=== PATIENT | female | born 1985 | race Caucasian/White ===

== ENCOUNTER 2016-11-07 17:10 | Emergency (ER) | payer OTHER ==
[~2016-11-07] VITALS: Wt 63.5 kg
[~2016-11-07 17:10] MED LIST: ANAPROX DS550 MG PO; ATARAX,VISTARIL10 MG PO; ATIVAN1 MG PO; BACTRIM DS 8001 TA1 PO; CATAFLAM50 MG PO; CIPRO500 MG PO; CLEOCIN HCL150 MG PO; CLINDAMYCIN HC300 MG PO; CLINDAMYCIN150 MG PO; DARVOCET N 1001 TAB PO; DICLOFENAC POT.50 MG PO; DIFLUCAN150 MG PO; EES400 MG PO; Effexor25 MG PO; FLONASE ALLERG9.9 ML NAS; HYCODAN/HYDROMET5 ML PO; KEFLEX500 MG PO; LATU20TA PO; LITHIUM CARBON150 MG PO; MEDROL DOSEPAK4 MG PO; MOTRIN800 MG PO; NAPROSYN500 MG PO; NEURONTIN300 MG PO; NICODERM C14 MG/24 H TD; NORFLEX100 MG PO; PEPCID20 MG PO; PREDNISONE10 MG PO; PROAIR HFA8.5 GM INH; PROZAC20 MG PO; PYRIDIUM200 MG PO; ROBITUSSIN AC 110 ML PO; TESSALON PERLE100 M1 PO; ULTRAM50 MG PO; VENTOLIN 02.5 MG/3 M INH; VICODIN 5/500 505 MG PO; VISTARIL25 M2 PO; XANAX0.5 MG PO; ZITHROMAX Z PA250 MG PO; ZITHROMAX250 MG PO; ZOFRAN ODT4 MG SL; Zofran4 MG PO
[2016-11-07 18:18] LABS: BASO % 0.5 % (0.0-1.0); EOS # 0.1 10*3/uL (0.0-0.4); EOS % 0.7 % (1.0-4.0); HEMATOCRIT 36.1 % (37.0-47.0); HEMOGLOBIN 12.7 g/dl (12.0-16.0); LYMPH # 2.5 10*3/uL (1.3-4.4); LYMPH % 28.1 % (27.0-41.0); MEAN CELL VOLUME 90.3 fl (81.0-99.0); MEAN CORPUSCULAR HGB 31.8 pg (27.0-31.0); MEAN CORPUSCULAR HGB CONC 35.2 g/dl (33.0-37.0); MONO # 0.6 10*3/uL (0.1-1.0); MONO % 6.2 % (3.0-9.0); NEUT # 5.7 10*3/uL (2.3-7.9); NEUT % 64.4 % (47.0-73.0); PLATELET COUNT AUTOMATED 215 10*3/uL (130-400); RED CELL DISTRI WIDTH 12.1 % (0-14.5); WHITE BLOOD COUNT 8.8 10*3/uL (4.8-10.8)
[2016-11-07 18:29] LABS: PROTHROMBIN TIME 10.8 SECONDS (9.0-12.4)
[2016-11-07 18:37] LABS: ALBUMIN 3.8 gm/dl (3.1-4.5); ALKALINE PHOSPHATASE 51 U/L (45-117); BILIRUBIN, TOTAL 0.4 mg/dl (0.2-1.0); BUN 7 mg/dl (7-24); CARBON DIOXIDE 24 mmol/L (21-32); CHLORIDE 108 mmol/L (98-107); EST GLOM FILT AFRICAN AMERICAN > 60 ml/min; GLUCOSE 74 mg/dL (65-99); POTASSIUM 3.6 mmol/L (3.5-5.1); SGOT/AST 10 IU/L (3-35); SGPT/ALT 17 U/L (12-78); SODIUM 141 mmol/L (136-145); TOTAL PROTEIN 7.7 gm/dL (6.4-8.2)
[2016-11-07 18:39] LABS: MAGNESIUM 1.7 mg/dL (1.5-2.1)
[2016-11-13] MEDS ORDERED: 'XANAX1 MG PO (20:22)
[2016-11-13] MEDS ORDERED: LATU40TA1 PO (20:22)
[2016-11-13] MEDS ORDERED: XANAX1 MG PO (21:46)
[2016-11-13] MEDS ORDERED: ZOFRAN ODT4 MG SL (21:47)
== END 2016-11-07 18:39 | disposition home or self-care (01) ==
LOC: ED 17:10
PROVIDERS: Emergency Medicine
DX: F41.9 Anxiety disorder, unspecified (principal); J45.909 Unspecified asthma, uncomplicated; F17.200 Nicotine dependence, unspecified, uncomplicated; Z88.0 Allergy status to penicillin

== ENCOUNTER 2017-03-15 19:30 | Emergency (ER) | payer OTHER ==
[~2017-03-15] VITALS: Ht 167.6 cm; Wt 63.5 kg
[~2017-03-15 19:30] MED LIST changes: +'XANAX1 MG PO; +LATU40TA1 PO; +XANAX1 MG PO
[2017-03-15] MEDS ORDERED: BACTRIM DS 8001 TA1 PO (20:10)
== END 2017-03-15 20:12 | disposition home or self-care (01) ==
LOC: ED 19:30
DX: H60.01 Abscess of right external ear (principal); F17.200 Nicotine dependence, unspecified, uncomplicated; Z88.0 Allergy status to penicillin

== ENCOUNTER 2017-06-06 22:16 | Emergency (ER) | payer OTHER ==
[~2017-06-06] VITALS: Ht 167.6 cm; Wt 63.5 kg
== END 2017-06-07 02:28 | disposition left against medical advice (07) ==
LOC: ED 22:16
DX: G47.00 Insomnia, unspecified (principal); R51 Headache; Z88.0 Allergy status to penicillin

== ENCOUNTER 2017-09-21 21:49 | Emergency (ER) | payer OTHER ==
[~2017-09-21] VITALS: Ht 167.6 cm; Wt 65.8 kg
[2017-09-21 22:14] LABS: BILIRUBIN NEGATIVE (NEGATIVE); BLOOD NEGATIVE (NEGATIVE); CLARITY SL CLOUDY (CLEAR); COLOR YELLOW (YELLOW); GLUCOSE NEGATIVE (NEGATIVE); KETONE NEGATIVE (NEGATIVE); LEUKO ESTERASE NEGATIVE (NEGATIVE); NITRITE NEGATIVE (NEGATIVE); PH 6.5 (5.0-9.0); SPECIFIC GRAVITY 1.015 (1.005-1.030); UROBILINOGEN 0.2 E.U./dl (0.2-1.0)
[2017-09-21 22:30] LABS: BACTERIA TRACE; EPITHELIAL CELLS 35-40
[2017-09-21 22:31] LABS: WBC 0-2 wbc/hpf (0-5)
[2017-09-22] MEDS ORDERED: ZANAFLEX2 M1 PO (01:05)
[2017-09-22] MEDS ORDERED: TRAMADOL HCL50 MG PO (01:05)
== END 2017-09-22 00:51 | disposition home or self-care (01) ==
LOC: ED 21:49
PROVIDERS: Emergency Medicine
DX: S29.012A Strain of muscle and tendon of back wall of thorax, initial encounter (principal); F17.200 Nicotine dependence, unspecified, uncomplicated; Z88.0 Allergy status to penicillin; X58.XXXA Exposure to other specified factors, initial encounter; Y93.89 Activity, other specified; Y92.89 Other specified places as the place of occurrence of the external cause; Y99.8 Other external cause status

== ENCOUNTER 2018-02-25 16:54 | Emergency (ER) | payer OTHER ==
[~2018-02-25] VITALS: Ht 167.6 cm; Wt 63.5 kg
[~2018-02-25 16:54] MED LIST changes: +TRAMADOL HCL50 MG PO; +ZANAFLEX2 M1 PO
[2018-02-25 17:19] LABS: BILIRUBIN 1+ (NEGATIVE); BLOOD NEGATIVE (NEGATIVE); CLARITY SL CLOUDY (CLEAR); COLOR YELLOW (YELLOW); GLUCOSE NEGATIVE (NEGATIVE); KETONE TRACE (NEGATIVE); LEUKO ESTERASE NEGATIVE (NEGATIVE); NITRITE NEGATIVE (NEGATIVE); PH 5.5 (5.0-9.0); SPECIFIC GRAVITY >= 1.030 (1.005-1.030); UROBILINOGEN 0.2 E.U./dl (0.2-1.0)
[2018-02-25 17:25] LABS: EPITHELIAL CELLS TNTC; MUCOUS 1+; RBC 0-2 rbc/hpf (0-2)
== END 2018-02-25 18:00 | disposition home or self-care (01) ==
LOC: ED 16:54
PROVIDERS: Emergency Medicine
DX: K59.00 Constipation, unspecified (principal); B36.0 Pityriasis versicolor; G89.29 Other chronic pain; M54.9 Dorsalgia, unspecified; F17.200 Nicotine dependence, unspecified, uncomplicated; Z98.51 Tubal ligation status; Z98.890 Other specified postprocedural states; Z88.0 Allergy status to penicillin

== ENCOUNTER 2018-07-18 20:36 | Emergency (ER) | payer OTHER ==
[~2018-07-18] VITALS: Ht 167.6 cm; Wt 65.8 kg
[2018-07-18] MEDS ORDERED: ZITHROMAX250 MG PO (21:10)
== END 2018-07-18 21:30 | disposition home or self-care (01) ==
LOC: ED 20:36
DX: J06.9 Acute upper respiratory infection, unspecified (principal); Z88.0 Allergy status to penicillin

== ENCOUNTER 2018-09-27 16:13 | Emergency (ER) | payer OTHER ==
[~2018-09-27] VITALS: Wt 63.5 kg
[2018-09-27] MEDS ORDERED: ZITHROMAX250 MG PO (18:24)
[2018-09-27] MEDS ORDERED: TESSALON PERLE100 M1 PO (18:24)
== END 2018-09-27 18:35 | disposition home or self-care (01) ==
LOC: ED 16:13
DX: J40 Bronchitis, not specified as acute or chronic (principal); F17.200 Nicotine dependence, unspecified, uncomplicated; Z88.0 Allergy status to penicillin

== ENCOUNTER 2019-07-21 15:59 | Emergency (ER) | payer SELFPAY ==
[~2019-07-21] VITALS: Wt 63.0 kg
[~2019-07-21 15:59] MED LIST changes: +DOXYCYCLINE100 M3 PO
[2019-07-21] MEDS ORDERED: HYDROCODONE-AC1 EAC1 PO (16:08)
[2019-07-21 17:05] LABS: HEMATOCRIT 35.3 % (37.0-47.0); HEMOGLOBIN 11.7 g/dl (12.0-16.0); MEAN CELL VOLUME 92.4 fl (81.0-99.0); MEAN CORPUSCULAR HGB 30.6 pg (27.0-31.0); MEAN CORPUSCULAR HGB CONC 33.1 g/dl (33.0-37.0); MEAN PLATELET VOLUME 9.1 fl (9.6-12.3); PLATELET COUNT AUTOMATED 246 10*3/uL (130-400); RED BLOOD COUNT 3.82 10*6/uL (4.10-5.10); RED CELL DISTRI WIDTH 13.1 % (0-14.5); WHITE BLOOD COUNT 13.7 10*3/uL (4.8-10.8)
[2019-07-21 17:19] LABS: ALBUMIN 2.9 gm/dl (3.1-4.5); ALKALINE PHOSPHATASE 72 U/L (45-117); BUN 9 mg/dl (7-24); CHLORIDE 106 mmol/L (98-107); CREATININE 0.68 mg/dL (0.55-1.02); LIPASE 49 U/L (73-393); POTASSIUM 3.5 mmol/L (3.5-5.1); SGOT/AST 6 IU/L (3-35); SGPT/ALT 9 U/L (12-78); SODIUM 137 mmol/L (136-145); TOTAL PROTEIN 7.4 gm/dL (6.4-8.2)
[2019-07-21 17:31] LABS: PLATELET SUFFICIENCY NORMAL (NORMAL); TOTAL CELLS COUNTED 100 #CELLS
[2019-07-21 17:32] LABS: BURR CELLS FEW
[2019-07-21 19:02] LABS: BILIRUBIN 1+ (NEGATIVE); BLOOD 1+ (NEGATIVE); CLARITY CLOUDY (CLEAR); COLOR YELLOW (YELLOW); GLUCOSE NEGATIVE (NEGATIVE); KETONE 3+ (NEGATIVE); LEUKO ESTERASE 2+ (NEGATIVE); NITRITE POSITIVE (NEGATIVE)
[2019-07-21 19:11] LABS: WBC TNTC wbc/hpf (0-5)
[2019-07-21] MEDS ORDERED: CIPRO500 MG PO (20:48)
[2019-07-22] MEDS ORDERED: CIPRO500 MG PO (08:29)
== END 2019-07-21 20:51 | disposition home or self-care (01) ==
LOC: ED 15:59
PROVIDERS: Physician Assistant
DX: N12 Tubulo-interstitial nephritis, not specified as acute or chronic (principal); R11.2 Nausea with vomiting, unspecified; F17.200 Nicotine dependence, unspecified, uncomplicated; Z98.51 Tubal ligation status; Z98.890 Other specified postprocedural states; Z79.899 Other long term (current) drug therapy; Z88.0 Allergy status to penicillin

== ENCOUNTER 2019-07-23 07:50 | Inpatient (IN) | payer SELFPAY ==
[~2019-07-23] VITALS: Ht 167.6 cm; Wt 64.7 kg
[~2019-07-23 07:50] MED LIST changes: +HYDROCODONE-AC1 EAC1 PO
[2019-07-23 07:53] VITALS: BP 130/85
--- NOTE | 2019-07-23 08:17 | NUR ---
ASKED IF SHE COULD PROVIDE URINE SPECIMIN, PT TELLS ME THAT SHE NEES A BEDPAN. BACKL TO ROOM TO PROVIDE BEDPAN AND PT TELLS ME THAT SHE DOESN'T WANT ME TO BE HER NURSE. LAB IS AT BEDSIDE AND PT IS REFUSING LABS AT THIS TIME.
[2019-07-23 08:58] LABS: ACT PARTIAL THROMBO TIME 29.3 SECONDS (20.0-32.1); BASO % 0.3 % (0.0-1.0); EOS # 0.1 10*3/uL (0.0-0.4); EOS % 0.5 % (1.0-4.0); HEMATOCRIT 37.5 % (37.0-47.0); HEMOGLOBIN 12.8 g/dl (12.0-16.0); LYMPH # 2.9 10*3/uL (1.3-4.4); LYMPH % 26.8 % (27.0-41.0); MEAN CELL VOLUME 89.5 fl (81.0-99.0); MEAN CORPUSCULAR HGB 30.5 pg (27.0-31.0); MEAN CORPUSCULAR HGB CONC 34.1 g/dl (33.0-37.0); MEAN PLATELET VOLUME 9.5 fl (9.6-12.3); MONO # 0.9 10*3/uL (0.1-1.0); MONO % 8.7 % (3.0-9.0); NEUT # 6.9 10*3/uL (2.3-7.9); NEUT % 63.2 % (47.0-73.0); RED BLOOD COUNT 4.19 10*6/uL (4.10-5.10); WHITE BLOOD COUNT 10.8 10*3/uL (4.8-10.8)
[2019-07-23 08:59] LABS: PLATELET COUNT AUTOMATED 360 10*3/uL (130-400)
[2019-07-23 09:07] LABS: ALKALINE PHOSPHATASE 70 U/L (45-117); B-hCG (QUALITATIVE) NEGATIVE (NEGATIVE); BUN 8 mg/dl (7-24); CHLORIDE 102 mmol/L (98-107); CREATININE 0.65 mg/dL (0.55-1.02); SGOT/AST 13 IU/L (3-35); SGPT/ALT 14 U/L (12-78); SODIUM 135 mmol/L (136-145); TOTAL PROTEIN 7.6 gm/dL (6.4-8.2)
[2019-07-23 09:08] LABS: TROPONIN I < 0.015 ng/ml (<0.045)
[2019-07-23 09:17] VITALS: BP 132/81
--- NOTE | 2019-07-23 09:17 | NUR ---
Time: 1916 A 34 year old FEMALE admitted to 4E under services of GREG OTERO DO. Pt. arrived via bed from ER. Chief complaint: ABD PPAIN, PYELONEPHRITIS. KEVIN ALTMAN
[2019-07-23 09:56] LABS: BILIRUBIN NEGATIVE (NEGATIVE); BLOOD NEGATIVE (NEGATIVE); CLARITY CLOUDY (CLEAR); COLOR YELLOW (YELLOW); GLUCOSE NEGATIVE (NEGATIVE); KETONE NEGATIVE (NEGATIVE); LEUKO ESTERASE NEGATIVE (NEGATIVE); NITRITE NEGATIVE (NEGATIVE); PH >= 9.0 (5.0-9.0); SPECIFIC GRAVITY 1.015 (1.005-1.030); UROBILINOGEN 0.2 E.U./dl (0.2-1.0)
[2019-07-23 10:12] LABS: URINE AMPHETAMINES < 1000 (1000ng/ml); URINE BARBITURATES < 200 (200ng/ml); URINE BENZODIAZEPINES > 200 (200ng/ml); URINE CANNABINOIDS (THC) > 50 (50ng/ml); URINE COCAINE < 300 (300ng/ml); URINE METHADONE < 300 (300ng/ml); URINE OPIATES > 300 (300ng/ml)
--- NOTE | 2019-07-23 10:15 | NUR ---
NOTIFIED THAT MED REC WAS UPDATED
[2019-07-23 10:22] LABS: EPITHELIAL CELLS 20-30
[2019-07-23 10:25] LABS: URINE PHENCYCLIDINE < 25 (25ng/ml)
[2019-07-23 10:48] LABS: BACTERIA 2+
[2019-07-23 12:00] VITALS: BP 107/58
--- NOTE | 2019-07-23 12:02 | NUR ---
NOTIFIED OF PATIENTS C/O ABD PAIN, PATIENT MOANING OUT AND THRASHING ABOUT THE BED, NO ORDERS AVAILABLE FOR PNRS AND WAS NOTIFIED
--- NOTE | 2019-07-23 12:29 | NUR ---
NOTIFIED AGAIN THAT PATIENT IS IN A LOT OFPAIN, MOANING LOUDLY THRASHING ABOUT THE BED PAIN RATED 20/10
--- NOTE | 2019-07-23 12:57 | NUR ---
PRN MORPHINE GIVEN FOR C/O OF SEVERE ABD AND BACK PAIN, PRN ZOFRAN GIVEN FOR C/O OF NAUSEA WILL CONTINUE TO MONITOR
--- NOTE | 2019-07-23 13:20 | NUR ---
PT RESTING IN BED WITH EYES OPEN REPORTS SOME COMFORT FROM PRN MORPHINE
--- NOTE | 2019-07-23 13:52 | NUR ---
PT C/O OF ABD CRAMPING AND PAIN PRN NORCO GIVEN PER ORDER
--- NOTE | 2019-07-23 14:20 | NUR ---
PATIENT REPORTS SOME RELIEF FOR PAIN RATING 5/10 PATIENT ALSO FIGHITNG WITH MOTHER ON CELLPHONE STATING "MY MOTHER IS THREATENING TO KEEP MY KIDS, AND SHES CALLING CYS, SHE WONT GIVE ME MY HOUSE CARNES" PATIENT ENOCURGED TO CALM DOWN AND TO PLEASE STOP YELLING BECAUSE WE HAVE VERY SICK PATIENTS TRYING TO REST, PT AGREED TO CALM DOWN AND AGAIN SPOKE WITH HER MOTHER ON SPEAKER PHONE, MOTHER IS CONCERNED THAT HER DAUGHTER IS "BACK ON DRUGS" BUT HAS AGREED TO STOP CALLING AND FIGHTING WITH HER.
[2019-07-23 16:00] VITALS: BP 123/74
--- NOTE | 2019-07-23 16:44 | NUR ---
PT C/O ABDOMINAL PAIN RATING IT A 10/10. MEDICATED WITH PRN MORPHINE. CALL LIGHT WITHIN REACH. WILL MONITOR EFFECTIVNESS.
--- NOTE | 2019-07-23 16:55 | NUR ---
IV TO LEFT AC D/C D/T PAIN AND BURNING
--- NOTE | 2019-07-23 17:15 | NUR ---
PAIN STATES PAIN MED WAS EFFECTIVE FOR PAIN AT THIS TIME RATING PAIN A 5/10. CALL LIGHT WITHIN REACH. WILL MONITOR.
--- NOTE | 2019-07-23 19:01 | NUR ---
NOTIFIED OF PATIENTS COMPLAINT THAT NOTHIGN WE'VE GIVEN HER IS EFFECTIVE FOR PAIN ALTHOUGH PATIENT HAS REPORTED PAIN RELIEF OR A DECREASE IN PAIN ON REAASSESSMENTS.
[2019-07-23 20:00] VITALS: BP 136/87
--- NOTE | 2019-07-23 20:08 | NUR ---
PATIENT DRAMATIC. YELLING OUT. MOANING, HOLDING STOMACH. C/O ABD CRAMPING RATING A 10+. MEDICATED WITH NORCO AND ZOFRAN IV PER PRN ORDER FOR COMPLAINTS OF PAIN AND NAUSEA. CALL LIGHT WITHIN REACH. WILL MONITOR FOR EFFECTIVENESS
--- NOTE | 2019-07-23 21:16 | NUR ---
PATIENT DOZED BRIEFLY AFTER RECEIVING EARLIER MEDS. NOW REQUESTING SOMETHING TO ASSIST WITH SLEEP, RESTORIL PROVIDED PER PRN ORDER. CALL LIGHT WITHIN REACH. WILL MONITOR
--- NOTE | 2019-07-23 23:21 | NUR ---
PATIENT AWAKENED FOR MIDNIGHT VS. UPON AWAKENING, PATIENT AGAIN DRAMATIC THRASHING ABT BED. REQUESTED AND RECIEVED MORPHINE IV PER PRN ORDER. WILL MONITOR
[2019-07-24] VITALS: BP 142/87
--- NOTE | 2019-07-24 00:01 | NUR ---
PATIENT NOW REQUESTING TYLENOL TO ASSIST WITH PAIN. STATES MORPHINE "TAKES THE EDGE OFF." TYLENOL PROVIDED PER PRN ORDER
--- NOTE | 2019-07-24 01:16 | NUR ---
REQUESTED AND RECEIVED NORCO PER PRN ORDER FOR COMPLAINTS OF ABD PAIN RATING A 10. CALL LIGHT WITHIN REACH WILL MONITOR FOR EFFECTIVENESS
--- NOTE | 2019-07-24 02:00 | NUR ---
EARLIER MEDS APPEAR EFFECTIVE. SLEEPING
--- NOTE | 2019-07-24 04:20 | NUR ---
PATIENT AGAIN DRAMATIC, MOANING. MEDICATED WITH MORPHINE IV PER PRN ORDER. CALL LIGHT WITHIN REACH. WILL MONITOR
--- NOTE | 2019-07-24 04:50 | NUR ---
24 HR chart check completed.
--- NOTE | 2019-07-24 06:15 | NUR ---
AWAKENED FOR AM LABS, PATIENT MOANING AND HOLDING ABD. MEDICATED WITH NORCO PER PRN ORDER FOR COMPLAINTS OF ABD PAIN RATING A 10. CALL LIGHT WITHIN REACH. WILL MONITOR
[2019-07-24 07:14] LABS: BASO # 0.1 10*3/uL (0.0-0.1); BASO % 0.8 % (0.0-1.0); EOS # 0.1 10*3/uL (0.0-0.4); EOS % 1.7 % (1.0-4.0); HEMOGLOBIN 11.8 g/dl (12.0-16.0); LYMPH # 3.4 10*3/uL (1.3-4.4); MEAN CELL VOLUME 91.6 fl (81.0-99.0); MEAN CORPUSCULAR HGB CONC 32.8 g/dl (33.0-37.0); MONO # 0.7 10*3/uL (0.1-1.0); MONO % 8.4 % (3.0-9.0); NEUT # 4.1 10*3/uL (2.3-7.9); NEUT % 48.5 % (47.0-73.0); PLATELET COUNT AUTOMATED 361 10*3/uL (130-400); RED BLOOD COUNT 3.93 10*6/uL (4.10-5.10); WHITE BLOOD COUNT 8.5 10*3/uL (4.8-10.8)
[2019-07-24 07:49] LABS: ALBUMIN 2.8 gm/dl (3.1-4.5); BUN 8 mg/dl (7-24); CHLORIDE 108 mmol/L (98-107); CHOLESTEROL 160 mg/dL (<200); CREATININE 0.59 mg/dL (0.55-1.02); PHOSPHOROUS 3.9 mg/dL (2.5-4.9); POTASSIUM 3.4 mmol/L (3.5-5.1); SGOT/AST 8 IU/L (3-35); SGPT/ALT 11 U/L (12-78); SODIUM 140 mmol/L (136-145); TRIGLYCERIDES 197 mg/dl (<150); VLDL CHOLESTEROL 39 mg/dL (6-40)
[2019-07-24 07:57] LABS: ALKALINE PHOSPHATASE 63 U/L (45-117); FREE T4 1.26 ng/dl (0.76-1.46); HDL CHOLESTEROL 24 mg/dl (40-60); LDL CHOLESTEROL 97 mg/dL (9-159)
[2019-07-24 08:00] VITALS: BP 104/68
--- NOTE | 2019-07-24 09:10 | NUR ---
MEDICATED WITH MORPHINE PER ORDER FOR C/O R FLANK PAIN RATED AT A 10 OUT OF 10.
--- NOTE | 2019-07-24 09:59 | NUR ---
MEDICATED WITH PRN NORCO PER ORDER AND REQUEST FOR "R KIDNEY PAIN" MORPHINE EARLIER HELPED A LITTLE.
--- NOTE | 2019-07-24 10:53 | NUR ---
NOTIFIED DR. CHAVEZ OFFICE OF CONSULT.
[2019-07-24 12:00] VITALS: BP 102/70
--- NOTE | 2019-07-24 12:16 | NUR ---
BENADRYL GIVEN PER ORDER AND REQUEST.
--- NOTE | 2019-07-24 12:48 | NUR ---
case management attempted to visit with patient, patient was sleeping, case management woke patient up and she stated she did not want to talk with me at this time, case management will see at a later time
--- NOTE | 2019-07-24 13:50 | NUR ---
BENADRYL HELPED VERY LITTLE, MEDICATED WITH MOPRPHINE PER ORDER AND REQUEST. PATIENT HAS NOT STOPPED CRYING ALL MORNING STATES HER KIDNEY HURTS.
--- NOTE | 2019-07-24 15:57 | NUR ---
MEDICATED WITH NORCO FOR R KIDNEY PAIN.
[2019-07-24 16:00] VITALS: BP 130/80
--- NOTE | 2019-07-24 16:30 | NUR ---
BAYRON HELPED SOME.
--- NOTE | 2019-07-24 17:03 | NUR ---
MEDICATED WITH PRN ZOFRAN PER ORSDER AND REQUEST.
--- NOTE | 2019-07-24 18:00 | NUR ---
DIMITRI HELPED A LITTLE.
--- NOTE | 2019-07-24 18:11 | NUR ---
Medicated for abdominal pain scale 10/10.
--- NOTE | 2019-07-24 18:32 | NUR ---
PATIENT CALLED RN TO ROOM AGAIN REQUESTING BENADRYL AGAIN EDUCATED BID AND THEN PATIENT WANTS TYLENOL AND NORCO INCREASED.
--- NOTE | 2019-07-24 19:56 | NUR ---
DRAMATIC, THRASHING ABOUT IN BED. MOANING, HOLDING ABD. RESPIRATIONS EASY. LUNGS DIMINISHED, CLEAR. PULSE OX 100% RA. C/O ABD CRAMPING AND PAIN RATING A 10 - MEDICATED WITH NORCO PER PRN ORDER. CALL LIGHT WITHIN REACH. WILL MONITOR
[2019-07-24 20:00] VITALS: BP 138/82; BP 139/94
--- NOTE | 2019-07-24 21:30 | NUR ---
VISITING HOURS REVIEWED AND VISITOR ASKED TO LEAVE
--- NOTE | 2019-07-24 22:00 | NUR ---
24 HR chart check completed.
--- NOTE | 2019-07-24 22:30 | NUR ---
IV FLUIDS INITIATED PER ORDER. REQUESTED AND RECEIVED MORPHINE AND BENADRYL PER PRN ORDER FOR COMPLAINTS OF ABD PAIN RATING A 10 AND TO ASSIST WITH SLEEP. WILL MONITOR
[2019-07-25] VITALS: BP 110/64
--- NOTE | 2019-07-25 | NUR ---
SLEEPING. VSS. IV FLUIDS MAINTAINED
--- NOTE | 2019-07-25 00:47 | NUR ---
AWAKE, THRASHING IN BED. MEDICATED WITH NORCO AND RESTORIL PER PRN ORDER FOR COMPLAINTS OF PAIN RATING A 10 AND TO ASSIST WITH SLEEP. WILL MONITOR
--- NOTE | 2019-07-25 03:47 | NUR ---
AWAKE, MOANING AND ROLLING AROUND IN BED. REQUESTED AND RECEIVED MORPHINE IV PER PRN ORDER. CALL LIGHT WITHIN REACH. WILL MONITOR
--- NOTE | 2019-07-25 04:51 | NUR ---
TYLENOL PROVIDED PER PATIENT REQUEST FOR COMPLAINTS OF ABD CRAMPING/ PAIN RATING A 10. WILL MONITOR
--- NOTE | 2019-07-25 06:02 | NUR ---
PATIENT AWAKENED FOR AM LABS. IMMEDIATELY UPON AWAKENING, REQUESTED NORCO TO ASSIST WITH ABD PAIN RATING A 10. DRAMATIC.
--- NOTE | 2019-07-25 07:00 | NUR ---
DOZING INTERMITTENTLY
[2019-07-25 07:09] LABS: BUN 8 mg/dl (7-24); CHLORIDE 110 mmol/L (98-107); CREATININE 0.58 mg/dL (0.55-1.02); POTASSIUM 3.9 mmol/L (3.5-5.1); SODIUM 140 mmol/L (136-145)
--- NOTE | 2019-07-25 07:59 | NUR ---
MEDICATED WITH BENADRYL AND MORPHINE PER ORDERS. PATIENT STATES SHE IS IN SEVERE PAIN R FLANK CRYING MAONING THRASHING IN BED.
[2019-07-25 08:00] VITALS: BP 104/66
--- NOTE | 2019-07-25 08:30 | NUR ---
BENADRYL AND MORPHINE HELPED.
--- NOTE | 2019-07-25 09:00 | NUR ---
case management visits with patient, she will return home when able and denies any home needs
[2019-07-25] MEDS ORDERED: SEPTDS PO (10:14)
[2019-07-25] MEDS ORDERED: NORCO 5-325 TA1 EACH PO (10:16)
--- NOTE | 2019-07-25 10:30 | NUR ---
DR. RIGGINS HAS ROUNDED AND PATIENT IS TO BE DISCHARGED.
--- NOTE | 2019-07-25 11:20 | NUR ---
PATIENT DISCHARGED TO HOME.
== END 2019-07-25 11:20 | disposition home or self-care (01) | DRG 690 ==
LOC: ED 07:50 → EDHOLD 08:18 → 4E 08:18
PROVIDERS: Emergency Medicine; Internal Medicine; ADMIT Internal Medicine
DX: N10 Acute pyelonephritis (principal); E87.1 Hypo-osmolality and hyponatremia; E44.1 Mild protein-calorie malnutrition; E87.6 Hypokalemia; D72.810 Lymphocytopenia; F19.10 Other psychoactive substance abuse, uncomplicated; F13.10 Sedative, hypnotic or anxiolytic abuse, uncomplicated; F17.210 Nicotine dependence, cigarettes, uncomplicated; Z88.0 Allergy status to penicillin; Z83.3 Family history of diabetes mellitus; Z68.23 Body mass index [BMI] 23.0-23.9, adult

== ENCOUNTER 2019-10-11 15:04 | Emergency (ER) | payer SELFPAY ==
[~2019-10-11] VITALS: Ht 167.6 cm; Wt 63.5 kg
[~2019-10-11 15:04] MED LIST changes: +NORCO 5-325 TA1 EACH PO; +SEPTDS PO
[2019-10-11 15:46] LABS: BILIRUBIN NEGATIVE (NEGATIVE); BLOOD NEGATIVE (NEGATIVE); CLARITY SL CLOUDY (CLEAR); COLOR YELLOW (YELLOW); GLUCOSE NEGATIVE (NEGATIVE); KETONE NEGATIVE (NEGATIVE); LEUKO ESTERASE NEGATIVE (NEGATIVE); NITRITE NEGATIVE (NEGATIVE); UROBILINOGEN 0.2 E.U./dl (0.2-1.0)
[2019-10-11] MEDS ORDERED: FLAGYL500 MG PO (16:17)
[2019-10-11] MEDS ORDERED: ZOFRAN4 MG PO (16:17)
[2019-10-13 07:06] LABS: GONOCOCCUS BY NAA Negative (Negative)
== END 2019-10-11 16:50 | disposition home or self-care (01) ==
LOC: ED 15:04
PROVIDERS: Physician Assistant
DX: R10.2 Pelvic and perineal pain (principal); R11.0 Nausea; L29.2 Pruritus vulvae; F17.200 Nicotine dependence, unspecified, uncomplicated; Z88.0 Allergy status to penicillin

== ENCOUNTER 2020-09-07 00:48 | Emergency (ER) | payer OTHER ==
[~2020-09-07] VITALS: Ht 167.6 cm; Wt 64.9 kg
[~2020-09-07 00:48] MED LIST changes: +FLAGYL500 MG PO; +ZOFRAN4 MG PO
[2020-09-07 01:15] LABS: BILIRUBIN Negative (Negative); BLOOD 1+ (Negative); CLARITY Cloudy (Clear); COLOR Yellow (Yellow); GLUCOSE Negative (Negative); KETONE Negative (Negative); LEUKO ESTERASE 1+ (Negative); NITRITE Negative (Negative); SPECIFIC GRAVITY 1.025 (1.001-1.030)
[2020-09-07 01:16] LABS: BASO % 0.3 % (0.0-1.0); EOS # 0.2 10*3/uL (0.0-0.4); EOS % 1.8 % (1.0-4.0); HEMATOCRIT 35.5 % (37.0-47.0); LYMPH # 2.2 10*3/uL (1.3-4.4); LYMPH % 24.4 % (27.0-41.0); MEAN CELL VOLUME 93.4 fl (81.0-99.0); MEAN CORPUSCULAR HGB 30.8 pg (27.0-31.0); MEAN PLATELET VOLUME 8.8 fl (9.6-12.3); MONO # 0.7 10*3/uL (0.1-1.0); MONO % 8.2 % (3.0-9.0); NEUT # 5.8 10*3/uL (2.3-7.9); NEUT % 65.2 % (47.0-73.0); PLATELET COUNT AUTOMATED 272 10*3/uL (130-400); RED CELL DISTRI WIDTH 12.3 % (0-14.5); WHITE BLOOD COUNT 8.9 10*3/uL (4.8-10.8)
[2020-09-07 01:23] LABS: BACTERIA 1+; EPITHELIAL CELLS 41-50; WBC 21-30 wbc/hpf (0-5)
[2020-09-07 01:24] LABS: MUCOUS 1+
[2020-09-07 01:32] LABS: ALBUMIN 3.4 gm/dl (3.1-4.5); ALKALINE PHOSPHATASE 58 U/L (45-117); BUN 7 mg/dl (7-24); CHLORIDE 112 mmol/L (98-107); LIPASE 259 U/L (73-393); POTASSIUM 3.9 mmol/L (3.5-5.1); SGOT/AST 14 IU/L (3-35); SGPT/ALT 14 U/L (12-78); SODIUM 143 mmol/L (136-145); TOTAL PROTEIN 7.3 gm/dL (6.4-8.2)
[2020-09-07] MEDS ORDERED: KETOROLAC10 MG PO (03:29)
[2020-09-07] MEDS ORDERED: PYRIDIUM200 M1 PO (03:29)
[2020-09-07] MEDS ORDERED: CIPRO500 MG PO (03:29)
== END 2020-09-07 03:53 | disposition home or self-care (01) ==
LOC: ED 00:48
PROVIDERS: Emergency Medicine
DX: N39.0 Urinary tract infection, site not specified (principal); G89.18 Other acute postprocedural pain; F17.200 Nicotine dependence, unspecified, uncomplicated; Z88.0 Allergy status to penicillin

== ENCOUNTER 2021-06-26 15:10 | Emergency (ER) | payer OTHER ==
[~2021-06-26] VITALS: Ht 167.6 cm; Wt 65.8 kg
[~2021-06-26 15:10] MED LIST changes: +KETOROLAC10 MG PO; +PYRIDIUM200 M1 PO
[2021-06-26] MEDS ORDERED: RISPERIDONE1 MG PO (15:42)
[2021-06-26] MEDS ORDERED: SERTRALINE HYDR50 MG PO (15:42)
[2021-06-26] MEDS ORDERED: BUSPAR5 MG PO (15:43)
[2021-06-26] MEDS ORDERED: CEPHALEXIN500 M1 PO (16:15)
== END 2021-06-26 16:18 | disposition home or self-care (01) ==
LOC: ED 15:10
DX: L03.031 Cellulitis of right toe (principal); Z88.0 Allergy status to penicillin; Z79.899 Other long term (current) drug therapy

== ENCOUNTER 2021-07-02 20:36 | Emergency (ER) | payer OTHER ==
[~2021-07-02] VITALS: Ht 167.6 cm; Wt 68.0 kg
[~2021-07-02 20:36] MED LIST changes: +BUSPAR5 MG PO; +CEPHALEXIN500 M1 PO; +RISPERIDONE1 MG PO; +SERTRALINE HYDR50 MG PO
[2021-07-03] MEDS ORDERED: CEPHALEXIN500 M1 PO (00:30)
== END 2021-07-03 01:24 | disposition home or self-care (01) ==
LOC: ED 20:36
DX: L60.0 Ingrowing nail (principal); F17.200 Nicotine dependence, unspecified, uncomplicated; Z88.0 Allergy status to penicillin; Z79.899 Other long term (current) drug therapy

== ENCOUNTER 2021-07-13 13:29 | Emergency (ER) | payer OTHER ==
[~2021-07-13] VITALS: Ht 167.6 cm; Wt 65.8 kg
== END 2021-07-13 18:42 | disposition home or self-care (01) ==
LOC: ED 13:29
DX: L60.0 Ingrowing nail (principal)

== ENCOUNTER 2021-07-20 15:04 | Emergency (ER) | payer OTHER ==
[~2021-07-20] VITALS: Ht 167.6 cm; Wt 65.8 kg
[2021-07-20] MEDS ORDERED: ZOFRAN4 MG PO (18:10)
== END 2021-07-20 18:30 | disposition home or self-care (01) ==
LOC: ED 15:04
DX: U07.1 COVID-19 (principal); M79.18 Myalgia, other site; F17.200 Nicotine dependence, unspecified, uncomplicated; Z88.0 Allergy status to penicillin; Z79.2 Long term (current) use of antibiotics; Z79.899 Other long term (current) drug therapy; Z98.890 Other specified postprocedural states; Z90.711 Acquired absence of uterus with remaining cervical stump

== ENCOUNTER 2021-08-02 17:48 | Emergency (ER) | payer OTHER ==
[~2021-08-02] VITALS: Ht 167.6 cm; Wt 65.8 kg
== END 2021-08-02 20:57 | disposition home or self-care (01) ==
LOC: ED 17:48
DX: F41.0 Panic disorder [episodic paroxysmal anxiety] (principal); R20.0 Anesthesia of skin; R51.9 Headache, unspecified; R20.2 Paresthesia of skin; F17.200 Nicotine dependence, unspecified, uncomplicated; Z88.0 Allergy status to penicillin; Z79.2 Long term (current) use of antibiotics; Z79.899 Other long term (current) drug therapy; Z98.890 Other specified postprocedural states; Z90.711 Acquired absence of uterus with remaining cervical stump; Z98.51 Tubal ligation status

== ENCOUNTER 2021-10-17 10:23 | Emergency (ER) | payer OTHER ==
[~2021-10-17] VITALS: Ht 167.6 cm; Wt 69.9 kg
== END 2021-10-17 11:37 | disposition left against medical advice (07) ==
LOC: ED 10:23
DX: Z53.21 Procedure and treatment not carried out due to patient leaving prior to being seen by health care provider (principal)

== ENCOUNTER 2021-10-19 08:04 | Emergency (ER) | payer OTHER ==
[2021-10-19] MEDS ORDERED: DOXYCYCLINE HY100 M3 PO (09:53)
[2021-10-19] MEDS ORDERED: TYLENOL EXTRA500 MG PO (09:59)
== END 2021-10-19 10:01 | disposition home or self-care (01) ==
LOC: ED 08:04
DX: L60.0 Ingrowing nail (principal)

== ENCOUNTER → 2022-03-15 | Outpatient (CLI) | payer OTHER ==
[~2022-03-15] MED LIST changes: +DOXYCYCLINE HY100 M3 PO; +TYLENOL EXTRA500 MG PO
== END | disposition home or self-care (01) ==
LOC: LAB 14:51
PROVIDERS: ATTEND Family Medicine
DX: M41.84 Other forms of scoliosis, thoracic region (principal); M51.34 Other intervertebral disc degeneration, thoracic region

== ENCOUNTER 2022-05-18 09:13 | Emergency (ER) | payer OTHER ==
[~2022-05-18] VITALS: Ht 167.6 cm; Wt 77.1 kg
[2022-05-18] MEDS ORDERED: VIBRA-TAB100 MG PO (10:29)
== END 2022-05-18 10:40 | disposition home or self-care (01) ==
LOC: ED 09:13
DX: L03.031 Cellulitis of right toe (principal); Z88.0 Allergy status to penicillin; Z79.899 Other long term (current) drug therapy; Z98.890 Other specified postprocedural states; Z98.51 Tubal ligation status; Z90.710 Acquired absence of both cervix and uterus

== ENCOUNTER → 2022-11-09 | Outpatient (CLI) | payer OTHER ==
[~2022-11-09] MED LIST changes: +VIBRA-TAB100 MG PO
[2022-11-09 13:40] LABS: ALKALINE PHOSPHATASE 104 U/L (46-116); BUN 7 mg/dl (9-23); CHLORIDE 104 mmol/L (98-107); CHOLESTEROL 277 mg/dL (<200); GAMMA GLUTAMYL TRANSPEPTIDASE 123 U/L (0-73); LDL CHOLESTEROL 175 mg/dL (9-159); POTASSIUM 3.8 mmol/L (3.4-5.1); SGPT/ALT 28 U/L (10-49); TOTAL PROTEIN 7.1 gm/dL (6.0-8.0); TRIGLYCERIDES 320 mg/dl (<150)
[2022-11-10 08:08] LABS: HBSAG Negative (Negative); HEP B CORE AB, IGM Negative (Negative); HEPATITIS C ANTIBODY <0.1 (0.0-0.9)
== END | disposition home or self-care (01) ==
LOC: LAB 12:08
PROVIDERS: ATTEND Family Medicine
DX: R79.89 Other specified abnormal findings of blood chemistry (principal); R53.83 Other fatigue; E78.5 Hyperlipidemia, unspecified

== ENCOUNTER → 2023-01-21 | Outpatient (CLI) | payer OTHER ==
[2023-01-21 11:44] LABS: MEAN CELL VOLUME 90.5 fl (81.0-99.0); MEAN CORPUSCULAR HGB 32.5 pg (27.0-31.0); MEAN CORPUSCULAR HGB CONC 35.9 g/dl (33.0-37.0); MEAN PLATELET VOLUME 8.8 fl (9.6-12.3); RED BLOOD COUNT 4.53 10*6/uL (4.10-5.10); RED CELL DISTRI WIDTH 11.6 % (0-14.5); WHITE BLOOD COUNT 8.6 10*3/uL (4.8-10.8)
[2023-01-21 14:49] LABS: ALKALINE PHOSPHATASE 121 U/L (46-116); BUN 6 mg/dl (9-23); CHLORIDE 107 mmol/L (98-107); CHOLESTEROL 305 mg/dL (<200); POTASSIUM 3.9 mmol/L (3.4-5.1); SGPT/ALT 31 U/L (10-49); THYROID STIM HORMONE (HS) 1.891 uIU/ml (0.550-4.780); TOTAL PROTEIN 7.9 gm/dL (6.0-8.0); TRIGLYCERIDES 661 mg/dl (<150)
== END | disposition home or self-care (01) ==
LOC: LAB 10:46
PROVIDERS: ATTEND Psychiatry & Neurology Psychiatry
DX: Z51.81 Encounter for therapeutic drug level monitoring (principal); F31.9 Bipolar disorder, unspecified; F41.1 Generalized anxiety disorder; Z79.899 Other long term (current) drug therapy

== ENCOUNTER → 2023-03-23 | Outpatient (CLI) | payer OTHER | END | disposition home or self-care (01) | LOC: US 02-24 01:56 | PROVIDERS: ATTEND Family Medicine | DX: K80.20 Calculus of gallbladder without cholecystitis without obstruction (principal); K76.0 Fatty (change of) liver, not elsewhere classified; Z90.710 Acquired absence of both cervix and uterus ==

== ENCOUNTER → 2023-11-23 | Outpatient (CLI) | payer OTHER ==
[2023-11-23 09:13] LABS: BASO # 0.1 10*3/uL (0.0-0.1); BASO % 0.6 % (0.0-1.0); EOS # 0.1 10*3/uL (0.0-0.4); HEMATOCRIT 40.2 % (37.0-47.0); LYMPH # 2.5 10*3/uL (1.3-4.4); LYMPH % 31.7 % (27.0-41.0); MEAN CELL VOLUME 91.8 fl (81.0-99.0); MEAN CORPUSCULAR HGB CONC 34.8 g/dl (33.0-37.0); MONO # 0.6 10*3/uL (0.1-1.0); MONO % 8.1 % (3.0-9.0); NEUT # 4.6 10*3/uL (2.3-7.9); NEUT % 58.3 % (47.0-73.0); PLATELET COUNT AUTOMATED 287 10*3/uL (130-400); RED BLOOD COUNT 4.38 10*6/uL (4.10-5.10); RED CELL DISTRI WIDTH 12.8 % (0-14.5); WHITE BLOOD COUNT 7.8 10*3/uL (4.8-10.8)
[2023-11-23 09:14] LABS: RETICULOCYTE % 1.32 % (0.50-2.50)
[2023-11-23 09:51] LABS: ALKALINE PHOSPHATASE 115 U/L (46-116); BUN 5 mg/dl (9-23); CHLORIDE 109 mmol/L (98-107); CHOLESTEROL 316 mg/dL (<200); LDL CHOLESTEROL 206 mg/dL (9-159); POTASSIUM 3.7 mmol/L (3.4-5.1); SGPT/ALT 47 U/L (5-49); T3 UPTAKE 24.2 % (22.4-36.7); THYROXINE (T4) TOTAL 4.7 ug/dl (4.5-10.9); TOTAL PROTEIN 7.3 gm/dL (6.0-8.0); TRIGLYCERIDES 355 mg/dl (<150)
[2023-11-23 09:55] LABS: VITAMIN D, 25-HYDROXY 16.2 ng/mL (30-100)
== END | disposition home or self-care (01) ==
LOC: LAB 08:41
PROVIDERS: Family Medicine; ATTEND Psychiatry & Neurology Psychiatry
DX: Z51.81 Encounter for therapeutic drug level monitoring (principal); F31.9 Bipolar disorder, unspecified; R53.83 Other fatigue; R74.8 Abnormal levels of other serum enzymes; E78.5 Hyperlipidemia, unspecified; R79.89 Other specified abnormal findings of blood chemistry; E55.9 Vitamin D deficiency, unspecified

== ENCOUNTER 2025-03-09 11:41 | Emergency (ER) | payer OTHER ==
[~2025-03-09] VITALS: Ht 167.6 cm; Wt 77.1 kg
[2025-03-09] MEDS ORDERED: Ondansetron Hydrochloride 4 MG TAB SL ONE (12:15)
[2025-03-09] MEDS ORDERED: Ketorolac Tromethamine 15 MG/ML VIAL IM ONE (12:15)
[2025-03-09] MEDS ORDERED: GABAPENTIN 300 MG CAP PO ONE (12:30)
[2025-03-09] MEDS ORDERED: Ondansetron4 MG PO (12:42)
[2025-03-09] MEDS ORDERED: NEURONTIN300 MG PO (12:43)
== END 2025-03-09 12:39 | disposition home or self-care (01) ==
LOC: ED 11:41
DX: F19.230 Other psychoactive substance dependence with withdrawal, uncomplicated (principal); M54.9 Dorsalgia, unspecified; R51.9 Headache, unspecified; F17.200 Nicotine dependence, unspecified, uncomplicated; Z88.0 Allergy status to penicillin; Z79.899 Other long term (current) drug therapy; Z98.890 Other specified postprocedural states; Z90.711 Acquired absence of uterus with remaining cervical stump; W22.8XXA Striking against or struck by other objects, initial encounter; Y93.89 Activity, other specified; Y92.89 Other specified places as the place of occurrence of the external cause; Y99.8 Other external cause status